=== PATIENT | male | born 1965 | race Caucasian/White ===

== ENCOUNTER 2017-03-06 01:52 | Emergency (ER) | payer OTHER ==
[~2017-03-06] VITALS: Ht 170.2 cm; Wt 129.0 kg
[~2017-03-06 01:52] MED LIST: CYCL-319 PO; DOCU-144 PO; HYDR-762 PO; HYDR-906 PO; NAPR-260 PO; OXYC-279 PO
[2017-03-06 02:01] VITALS: Ht 170.2 cm; Wt 129.0 kg
[2017-03-06] MEDS ORDERED: KETOROLAC 30 MG INJ IM STA (02:18)
[2017-03-06] MEDS ORDERED: MULT-231 PO (02:20)
[2017-03-06] MEDS ORDERED: IBUP-1542 PO (02:20)
--- NOTE | 2017-03-06 02:29 | ERD ---
ER Documentation Chief Complaint Date/Time DATE: 03/06/17 TIME: 02:26 Chief Complaint states been having cramps on left hand x 1 day HPI 51-year-old man complains of left arm and hands cramping occurring a couple of times today. He has had similar episodes in the past and states he is anxious, he also states he had intermittent shortness of breath earlier in the day although none now. He states that upper extremity pain has improved and cramping resolved. He does have a history of alcoholism and hypertension and states he has not drunk alcohol for about 1 week. He denies chest pain, no fevers or chills, no cough, no vomiting or diarrhea. ROS All systems reviewed and are negative except as per history of present illness. Medications Home Meds Active Scripts Multivit with Calcium,Iron,Min (Essential Daily) 1 Each Tablet, 1 EACH PO DAILY , #30 TAB Prov:FRANCIS JOSHUA MD 03/06/17 Ibuprofen* (Ibuprofen*) 600 Mg Tablet, 600 MG PO Q8 for PAIN AND/OR INFLAMMATION , #30 TAB Prov:FRANCIS JOSHUA MD 03/06/17 Naproxen* (Naprosyn*) 500 Mg Tablet, 500 MG PO BID Y for PAIN AND/OR INFLAMMATION, #30 TAB Prov:KIKA FUNES PA-C 09/28/16 Cyclobenzaprine Hcl* (Cyclobenzaprine Hcl*) 10 Mg Tablet, 10 MG PO TID, #15 TAB Prov:KIKA FUNES PA-C 09/28/16 Oxycodone HCl/Acetaminophen (Percocet 5-325 mg Tablet) 1 Each Tablet, 1 EACH PO QHS, #10 TAB Prov:KIKA FUNES PA-C 09/28/16 Naproxen* (Naprosyn*) 500 Mg Tablet, 500 MG PO BID Y for PAIN AND/OR INFLAMMATION, #14 TAB Prov:SHAWNA APODACA PA-C 04/14/16 Hydrocodone Bit-Acetaminophen (Sixes) 5-325 Mg Tablet, 1 TAB PO Q4H Y for PAIN, #10 TAB Prov:SHAWNA APODACA PA-C 04/14/16 Docusate Sodium* (Colace*) 100 Mg Capsule, 100 MG PO TID, #30 Prov:VALERY BUSH DO 07/16/15 Hydrocodone Bit-Acetaminophen* (Sixes*) 10-325 Mg Tablet, 1 TAB PO Q6 Y for PAIN , #14 TAB Prov:VALERY BUSH DO 07/16/15 Allergies Allergies: Coded Allergies: No Known Allergy (Unverified , 03/06/17) PMhx/Soc Hypertension, anxiety, alcoholism, obesity History of Surgery: Yes (knee surgery in the '90s, shoulder) Anesthesia Reaction: No Hx Neurological Disorder: No Hx Respiratory Disorders: No Hx Cardiac Disorders: No Hx Psychiatric Problems: No Hx Miscellaneous Medical Probl: No Hx Alcohol Use: Yes Hx Substance Use: No Hx Tobacco Use: Yes Smoking Status: Current every day smoker FmHx Family History: diabetes Physical Exam Vitals Vital Signs Date Time Temp Pulse Resp B/P Pulse Ox O2 Delivery O2 Flow Rate FiO2 03/06/17 02:01 97.6 78 20 143/78 97 Physical Exam GENERAL: Well-developed, well-nourished, well-hydrated, in no apparent distress , looks nontoxic in appearance HEENT: Moist mucous membranes, pink conjunctiva, no cervical spine tenderness or step-off deformities, no goiter, no jaundice or icterus, extraocular movements intact without pain. No submandibular induration, and no pharyngeal erythema NEURO: Alert and oriented 3, cranial nerves II through XII intact bilaterally, pupils equal round reactive to light, no focal deficits or facial asymmetry, sensation intact distally Strength 5/5 in upper and lower extremities bilaterally CARDIAC: Regular rate and rhythm, no murmurs rubs or gallops LUNGS: Clear bilaterally no wheezing crackles or stridor ABDOMEN: Soft nontender, no guarding, no rigidity, no rebound, no psoas sign no obturator sign. Normoactive bowel sounds SKIN: Warm and dry to touch, no abrasions, contusions, or hematomas, no lacerations, no ecchymosis, no target lesions, and without ulcers EXTREMITIES: No clubbing cyanosis or edema, calves are bilaterally symmetrical, no Homans sign, no popliteal cord sign. Distal pulses equal and bilateral PSYCH: Normal affect without agitation or irritability Results 24 hrs Current Medications Medications (Trade) Dose Ordered Sig/Bhavesh Route PRN Reason Start Time Stop Time Status Last Admin Dose Admin Ketorolac Tromethamine (Toradol) 30 mg ONCE STAT IM 03/06/17 02:18 03/06/17 02:19 DC Procedures/MDM I administered Toradol 30 mg intramuscular injection with good relief of symptoms. Neurologic exam was perfectly normal, and given his history I recommended daily complex vitamin supplementation. Differential diagnoses considered, included but not limited to acute coronary syndrome, pulmonary embolism, aortic dissection, abdominal aortic aneurysm, sepsis, stroke, meningitis, encephalitis, pneumonia, appendicitis, cholecystitis , bowel obstruction, pyelonephritis, nephrolithiasis, cystitis, as well as metabolic, hematologic, and electrolyte abnormalities. As well as abscess, cellulitis, fractures, and dislocations. Patient feels much better at this time, and vital signs are normal, symptoms have improved. I did give strict instructions to return to the ED if symptoms continue or worsen, patient will otherwise follow-up with primary care physician. Patient understood instructions and agreed to plan. Disclaimer: Inadvertent spelling or grammatical errors are likely due to EHR/ dictation software use and do not reflect on the overall quality of patient care. Departure Diagnosis: Primary Impression: Muscle spasm Additional Impression: Alcoholism Condition: Good Patient Instructions: Muscle Spasm FRANCIS JOSHUA MD March 06, 2017 02:29
[2017-03-06] MEDS ORDERED: PRAM1TAB5 PO (02:46)
== END 2017-03-06 02:47 | disposition home or self-care (01) ==
LOC: E/R 01:52
DX: M62.838 Other muscle spasm (principal); F10.20 Alcohol dependence, uncomplicated; I10 Essential (primary) hypertension; F17.210 Nicotine dependence, cigarettes, uncomplicated; E66.9 Obesity, unspecified; Z68.41 Body mass index [BMI] 40.0-44.9, adult
CPT/HCPCS: 96372; J1885; Z7502

== ENCOUNTER 2017-09-27 13:12 | Emergency (ER) | payer OTHER ==
[~2017-09-27] VITALS: Ht 167.6 cm; Wt 139.1 kg
[~2017-09-27 13:12] MED LIST changes: -CYCL-319 PO; -DOCU-144 PO; -HYDR-762 PO; -HYDR-906 PO; +IBUP-1542 PO; +MULT-231 PO; -NAPR-260 PO; -OXYC-279 PO; +PRAM1TAB5 PO
[2017-09-27 13:22] VITALS: Ht 167.6 cm; Wt 139.1 kg
[2017-09-27] MEDS ORDERED: IBUP800T25 PO (15:43)
--- NOTE | 2017-09-27 15:54 | ERD ---
ER Documentation Chief Complaint Chief Complaint left knee pain x 3 days HPI 52-year-old male complaining of left knee pain 3 days. Patient stated that the pain had a sudden onset, is sharp. The pain is worse when he is trying to step down, or when he is kneeling or bending. Patient recently started a new job working at [employer]. 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 Patient is not using a knee pad at work. Patient has history of osteoarthritis and torn cartilages. Denies fall or injuries. Denies fever or chills. ROS All systems reviewed and are negative except as per history of present illness. Medications Home Meds Active Scripts Ibuprofen* (Motrin*) 800 Mg Tab, 800 MG PO Q6H Y for PAIN AND OR ELEVATED TEMP, #30 TAB Prov:NISHANT RODRIGEZ. ABALONE FISHERMAN 09/27/17 Multivit with Calcium,Iron,Min (Essential Daily) 1 Each Tablet, 1 EACH PO DAILY , #30 TAB Prov:FRANCIS JOSHUA MD 03/06/17 Ibuprofen* (Ibuprofen*) 600 Mg Tablet, 600 MG PO Q8 for PAIN AND/OR INFLAMMATION , #30 TAB Prov:FRANCIS JOSHUA MD 03/06/17 Reported Medications Pramipexole* (Mirapex*) 1 Mg Tablet, 1 MG PO TID, TAB 03/06/17 Allergies Allergies: Coded Allergies: No Known Allergy (Unverified , 03/06/17) PMhx/Soc History of Surgery: Yes (knee surgery in the '90s, shoulder) Anesthesia Reaction: No Hx Neurological Disorder: No Hx Respiratory Disorders: No Hx Cardiac Disorders: Yes (HTN) Hx Psychiatric Problems: No (MOOD DISORDER, PTSD) Hx Miscellaneous Medical Probl: No (RESTLESS LEG) Hx Alcohol Use: Yes Hx Substance Use: No Hx Tobacco Use: No Smoking Status: Former smoker Physical Exam Vitals Vital Signs Date Time Temp Pulse Resp B/P Pulse Ox O2 Delivery O2 Flow Rate FiO2 09/27/17 13:22 98.3 97 18 114/63 100 Physical Exam General: Well-developed, well-nourished, conscious and coherent, in no distress Skin: Warm and dry without rash, good texture and turgor Head: Normocephalic without evidence of trauma Eyes: Sclera and conjunctivae normal; pupils equal, round, and reactive to light; extraocular movements are intact Chest: Normal AP diameter. Good expansion without retractions. Nontender. Lungs are clear to auscultate bilaterally with good tidal volume Heart: Regular rate and rhythm. No murmur, rub, or gallops heard Extremities: Left knee tender over the infrapatellar bursa. Full range of motion. Good strength bilaterally. No clubbing, cyanosis, erythema, or edema. Peripheral pulses are intact. Sensation intact Neuro: Alert and oriented 4, GCS 15. Cranial nerves grossly intact. Motor and sensory exams nonfocal. Moves all extremities. Speech clear. Gait normal Results 24 hrs Current Medications Medications (Trade) Dose Ordered Sig/Bhavesh Route PRN Reason Start Time Stop Time Status Last Admin Dose Admin Ibuprofen (Motrin) 800 mg ONCE ONCE PO 09/27/17 16:00 09/27/17 16:01 Procedures/MDM Well-appearing 52-year-old male present ED with left knee pain 3 days. Patient did not have any trauma or injuries, I have low suspicion for fractures or dislocations. There is no erythema or warmth to the left knee. I doubt septic joint or gout. I suspect the patient has a infrapatellar bursitis, which is consistent with his history of working on his knees without knee pads. The area of injury was immobilized with an Fredy wrap. Patient was noted to be comfortable and neurovascularly intact both before and after the immobilization. Ibuprofen given to the patient in the ED. Patient stated that he cannot afford to take any day off work. Advised patient to invest in a good pair of kneepads, and ice the knee after he gets home. Patient appears well, stable for discharge and outpatient management. Medical decision making shared with patient and family. Education provided to patient and family. Patient and family expressed understanding of the plan. Medications on discharge: Ibuprofen. Follow-up: Primary care provider in 2-3 days or return to ED if worse. Disclaimer: Inadvertent spelling and grammatical errors are likely due to EHR/ dictation software use and do not reflect on the overall quality of patient care. Also, please note that the electronic time recorded on this note does not necessarily reflect the actual time of the patient encounter. Departure Diagnosis: Primary Impression: Bursitis of left knee Knee bursitis location: infrapatellar bursitis Qualified Code: M70.52 - Infrapatellar bursitis of left knee Condition: Stable Patient Instructions: What Is Bursitis? Referrals: [facility] YOU HAVE RECEIVED A MEDICAL SCREENING EXAM AND THE RESULTS INDICATE THAT YOU DO NOT HAVE A CONDITION THAT REQUIRES URGENT TREATMENT IN THE EMERGENCY DEPARTMENT. FURTHER EVALUATION AND TREATMENT OF YOUR CONDITION CAN WAIT UNTIL YOU ARE SEEN IN YOUR DOCTORS OFFICE WITHIN THE NEXT 1-2 DAYS. IT IS YOUR RESPONSIBILITY TO MAKE AN APPOINTMENT FOR FOLOW-UP CARE. IF YOU HAVE A PRIMARY DOCTOR --you should call your primary doctor and schedule an appointment IF YOU DO NOT HAVE A PRIMARY DOCTOR YOU CAN CALL OUR PHYSICIAN REFERRAL HOTLINE AT IF YOU CAN NOT AFFORD TO SEE A PHYSICIAN YOU CAN CHOSE FROM THE FOLLOWING [facility] [address] [facility]. [facility] [address] [facility] [facility] [address] [facility] [facility] [address] [facility] [address] [facility]. [facility] [address] Additional Instructions: Call your primary care doctor TOMORROW for an appointment during the next 1 WEEK.Tell the workers compensation legal secretary that you were referred from this facility.See the doctor sooner or return here if your condition worsens before your appointment time. NISHANT RODRIGEZ NP Sep 27, 2017 15:54
[2017-09-27] MEDS ORDERED: IBUPROFEN 800 MG TAB PO ONE (16:00)
== END 2017-09-27 16:09 | disposition home or self-care (01) ==
LOC: FTE 13:12
DX: M70.52 Other bursitis of knee, left knee (principal); I10 Essential (primary) hypertension; Y93.9 Activity, unspecified; Z87.891 Personal history of nicotine dependence
CPT/HCPCS: 99283

== ENCOUNTER 2018-01-27 13:26 | Emergency (ER) | END 2018-01-27 14:56 | disposition home or self-care (01) ==